=== PATIENT | female | born 1945 | race Caucasian/White ===

== ENCOUNTER → 2016-07-27 | Outpatient (CLI) | payer BC ==
--- NOTE | ~2016-07-27 | MY11 ---
[facility] A Service of [facility] RADIOLOGY TEXT RESULTS PATIENT: AUSTIN VENEGAS LOCATION: [facility] : 47 UNIT #: [id number] AGE: [address]: Cecily Cole MD SEX: F ORDER DR: [id number] [facility] [address]. [place], [place] [address] [id number] O MR#: [id number] Acc #: [id number] NAME: AUSTIN VENEGAS : 1945 SEX: F STUDY DATE/TIME: 07/27/2016 10:26 UNIT: [facility] ROOM: STUDY DESCRIPTION: MY Mammogram Screening Dig Gordon Attending Physician: Cecily Cole M.D. Referring Physician: Cecily Cole M.D. Ordering Physician: Cecily Cole M.D. Primary Care Physician: Cecily Cole M.D. MEDICAL IMAGING REPORT This report is preliminary unless electronic signature is present EXAM Digital screening mammogram, 07/27/2016. HISTORY 71-year-old woman, no risk elevation. Annual screen. COMPARISON Mammograms date to 03/26/2011, with most recent 02/03/2015. FINDINGS Digital imaging of each breast was completed utilizing a two-view examination of each breast in craniocaudal and mediolateral-oblique projections. Review and interpretation of digital mammograms include a second review in conjunction with FDA-approved CAD device. There is a normal parenchymal presentation bilaterally consistent with the patient's age. There are no breast masses imaged and no parenchymal asymmetry is visualized. There are no suspicious microcalcifications and I see no focal architectural disturbance. IMPRESSION Negative screening digital mammogram. One-year followup recommended. ADDENDUM Breast parenchyma is fatty replaced. Patients over the age of 40 are entered into a reminder system with target due date for the next mammogram. A result letter will also be sent to the patient. BIRADS: 1 Negative [facility] A Service of [facility] RADIOLOGY TEXT RESULTS PATIENT: AUSTNI VENEGAS LOCATION: [facility] : 47 UNIT #: [id number] AGE: [address]: Cecily Cole MD SEX: F ORDER DR: Dictated by... Charan Candelaria M.D. THIS IS AN ELECTRONICALLY VERIFIED REPORT Charan Candelaria M.D. at 07/28/2016 8:06 AM ED/belinda TD: 07/27/2016 15:58 JOB #: [id number] MEDICAL IMAGING REPORT Page 1 of 1 COPY
== END | disposition home or self-care (01) ==
LOC: CWCC 10:00
DX: Z12.31 Encounter for screening mammogram for malignant neoplasm of breast (principal); R92.8 Other abnormal and inconclusive findings on diagnostic imaging of breast
CPT/HCPCS: G0202